=== PATIENT | male | born 1975 | race Caucasian/White ===

== ENCOUNTER 2017-01-29 05:11 | Day surgery (SDC) | payer OTHER ==
[2017-01-21 13:34] VITALS: BMI 35.9
--- NOTE | 2017-01-29 09:20 | HP ---
[facility] - Chief Complaint Chief Complaint: right bicep rupture - Past Medical History Allergies/Adverse Reactions: Allergies Allergy/AdvReac Type Severity Reaction Status Date / Time No Known Drug Allergies Allergy Verified 01/29/17 09:13 - Current Medications Current Medications: Home Medications Medication Instructions Recorded Multivitamin [Poly-Vitamin] 1 each PO DAILY 01/21/17 Zinc 200 mg PO DAILY 01/21/17 Hydrocodone/Acetaminophen [Burdett 1 each PO Q6H PRN #40 tablet MDD 4 01/29/17 5-325 Tablet] Satellite Physical Exam - Physical Examination Vital Signs: Vital Signs Period Temp Pulse Resp BP Sys/Kelley Pulse Ox Last 24 Hr 98.1 F 70 18 141/76 98 General Appearance: Well Nourished, Well Developed, Alert & Oriented x3 ENT: Clear Lung: Normal air movement Heart: Regular rate & rhythm Extremities: Other (right elbow, + deformity, + defect, nvi) Neurological: Intact, Alert, Oriented Satellite Impression/Plan - Impression/Plan Impression: right distal bicep tendon rupture Operative Procedure: right distal bicep repair Date to be Performed: 01/29/17
[2017-01-29] MEDS ORDERED: MIDAZOLAM HCL 2 MG/2 ML SINGLE DOSE VIAL ONE ×2 (13:12)
[2017-01-29] MEDS ORDERED: PROPOFOL 20 ML ONE ×4 (13:12→13:30)
[2017-01-29] MEDS ORDERED: ROCURONIUM BROMIDE 50 MG/5 ML VIAL ONE (13:12)
[2017-01-29] MEDS ORDERED: BUPIVACAINE HCL/PF 0.5% (5MG/ML) 10 ML VIAL ONE (13:15)
[2017-01-29] MEDS ORDERED: LIDOCAINE HCL 1%, 10 MG/ML (20ML VIAL) ONE (13:15)
[2017-01-29] MEDS ORDERED: ceFAZolin SODIUM 1 GM VIAL ONE (13:39)
[2017-01-29] MEDS ORDERED: ceFAZolin SODIUM 1 GM VIAL IVPB ONE (13:40)
[2017-01-29] MEDS ORDERED: DESFLURANE GAS 240 ML BOTTLE IH ONE (13:49)
[2017-01-29] MEDS ORDERED: GLYCOPYRROLATE 0.2 MG/1 ML VIAL ONE (13:56)
[2017-01-29] MEDS ORDERED: NEOSTIGMINE METHYLSULFATE 0.5 MG/ML - 10 ML MDV ONE (13:56)
[2017-01-29] MEDS ORDERED: LIDOCAINE HCL 1%, 10 MG/ML (20ML VIAL) IJ ONE (15:28)
[2017-01-29] MEDS ORDERED: BUPIVACAINE HCL/PF 0.5% (5MG/ML) 10 ML VIAL IJ ONE (15:28)
--- NOTE | 2017-01-29 15:41 | OP ---
Operative Note - Note: [facility]ative [facility]: [facility]/17 [facility] Pre-Operative Diagnosis: right distal biceps rupture Operation: right distal biceps repair Post-Operative Diagnosis: Same as Pre-op Surgeon: Doug Bernabe Chief Clerk Shelter: Godwin Miller Anesthesiologist/DISTRIBUTION MANAGER: Aishwarya Bettencourt Anesthesia: General, Local Estimated Blood Loss (mls): 10 (tourniquet) Operative Report Dictated: Yes
[2017-01-29] MEDS ORDERED: oxyCODONE HCL 5 MG TABLET PO PRN (15:54)
[2017-01-29] MEDS ORDERED: ONDANSETRON 4 MG/2 ML VIAL IVPUSH PRN (15:54)
[2017-01-29] MEDS ORDERED: LACTATED RINGERS SOLUTION 1,000 ML IV SCH (16:00)
[2017-01-29 18:13] VITALS: TEMP 98.6
[2017-01-29] MEDS ORDERED: oxyCODONE HCL 5 MG TABLET PO ONE (18:25)
[2017-01-29] MEDS ORDERED: oxyCODONE HCL 5 MG TABLET ONE (18:25)
[2017-01-29 19:11] VITALS: BP 132/75; PULSE 73
--- NOTE | 2017-01-30 09:22 | OP ---
DATE OF OPERATION: 01/29/2017 PREOPERATIVE DIAGNOSIS: Right distal biceps tendon rupture. POSTOPERATIVE DIAGNOSIS: Right distal biceps tendon rupture. PROCEDURE: Two-incision right distal biceps tendon repair. SURGEON: Daniel Aguirre MD CELERY PACKER: ADRY Messer ANESTHESIOLOGIST: Gaby Ponce MD ANESTHESIA: General endotracheal. DRAINS: None. COMPLICATIONS: None. SPECIMENS: None. BLOOD LOSS: None. FLUID REPLACEMENT: 1000 mL INDICATIONS: This patient is a 42-year-old male with a preoperative diagnosis of a right distal biceps tendon rupture. After understanding the potential risks, complications, alternatives, and benefits of surgery versus nonsurgical treatment, the patient elected to undergo this procedure. DESCRIPTION OF PROCEDURE: The patient was brought into the operating room. Peripheral IV placed. IV sedation given. Then, 2 g of IV Ancef were given. General endotracheal anesthesia was induced as the patient needed to have muscle relaxation. The right upper extremity was then prepped and draped in sterile fashion, elevated, exsanguinated with an Esmarch bandage. Tourniquet inflated to 250 mmHg. A transverse incision was marked out within the anterior elbow crease. Incision made with a number-15 scalpel blade. Subcutaneous hemostasis achieved with the bipolar cautery. Dissection done with Metzenbaum scissors down to the biceps tendon sheath which was incised. Inflammatory hematoma evacuated, and the distal biceps tendon stump was retrieved. I then used my finger and a Tristan elevator to remove inflammatory adhesions. I removed a small amount of acute inflammatory tissue around the distal stump of the biceps tendon. I then used 3 FiberWire sutures to use in an up-and-down, whipped, [id number]-ripmak fashion. There were 6 tails total. Next, I first passed my finger down through the distal biceps tendon sheath, then passed a curved Cori clamp, taking great care to avoid the ulnar periosteum and wrapped it around the radius, tented the skin, marked it out, made incision over the tip of the curved Cori clamp. Again, dissection was made with a number-15 scalpel blade. Subcutaneous hemostasis was achieved with the bipolar cautery. Dissection done down through the superficial fascia, through the muscular fascia, tracing the path of the curved hemostat the entire way. I was able to find the radial tuberosity. Burgess retractors were placed into the wound for better visualization. I used a rongeur to remove the soft tissue debris and muscle debris off of the radial tuberosity. Overall though, it was quite well visualized. Then, I passed the sutures via a Cori clamp through form anterior to posterior, through the biceps tendon sheath. It came out well. There was excellent length. Next, the anterior first incision was irrigated, washed out, 4-0 undyed Vicryl used to close the deep dermal layer, and final skin reapproximation was done with a running subcuticular 4-0 Biosyn stitch. It was washed and dried and covered with Steri-Strips. Our attention was turned back to the second more-posterior incision. We used an oval bur and burred out the radial tuberosity, rounding off the edges, making a crater with enough room for the distal stump of the biceps tendon. I then used a 2.7-mm drill bit, made 2 holes in the roof of the bony crater of the radial tuberosity. Then, using a nitinol wire, we passed the 3 tails through the distal, 3 tails through the proximal drill hole. I was able to pull the distal biceps tendon stump down into the crater quite well. It filled the entire crater. There was excellent length. I was able to rotate the arm as a unit. It moved quite well with not too much tension. I then pulled it in, held the arm in neutral, tied 2 tails to 2 tails, then tied 1 tail to 1 tail with insurance stitches. The excess tails were cut. The arm was tested, and indeed, the biceps tendon moved as a unit with the radial tuberosity. There was no gaping. Overall, it was quite good. The area was copiously irrigated and washed out. The deep fascia closed with 0 Vicryl suture. The second fascia closed with 0 Vicryl. The deep dermal layer closed with 2-0 Vicryl, and final skin reapproximation done with a running subcuticular 4-0 Biosyn stitch. The area was then washed and dried and covered with Steri-Strips, 4 x 4's, Webril, and a 6-inch posterior Ortho-Glass splint was applied, wrapped with 2 Gregorio bandages. Total tourniquet time was about 92 minutes. There were no complications during the case. The patient tolerated the procedure quite well and was brought to the ambulatory recovery room in stable condition. DANIEL AGUIRRE M.D. [id number]
== END 2017-01-29 19:15 | disposition home or self-care (01) ==
LOC: JASU-SURG 05:11
PROVIDERS: ATTEND Orthopaedic Surgery
PROC: 0LQ30ZZ Repair Right Upper Arm Tendon, Open Approach (ICD-10-PCS; principal; 2017-01-29 10:30)
DX: S46.211A Strain of muscle, fascia and tendon of other parts of biceps, right arm, initial encounter (principal); X58.XXXA Exposure to other specified factors, initial encounter; Y93.9 Activity, unspecified; Y92.9 Unspecified place or not applicable; Y99.9 Unspecified external cause status
CPT/HCPCS: 94760

== ENCOUNTER 2017-10-15 05:04 | Day surgery (SDC) | payer OTHER ==
[2017-10-10 10:26] VITALS: BMI 35.9
[2017-10-15 12:10] VITALS: BP 137/64; PULSE 60; TEMP 98.2
== END 2017-10-15 12:30 | disposition home or self-care (01) ==
LOC: JASU-SURG 05:04
PROVIDERS: ATTEND Orthopaedic Surgery
PROC: 0LM40ZZ Reattachment of Left Upper Arm Tendon, Open Approach (ICD-10-PCS; principal; 2017-10-15)
DX: S46.212A Strain of muscle, fascia and tendon of other parts of biceps, left arm, initial encounter (principal); X58.XXXA Exposure to other specified factors, initial encounter; Y93.9 Activity, unspecified; Y92.9 Unspecified place or not applicable; Y99.9 Unspecified external cause status
CPT/HCPCS: 94760

== ENCOUNTER 2023-05-02 05:05 | Day surgery (SDC) | payer OTHER ==
[2023-04-30 13:29] VITALS: BMI 36.6
[~2023-05-02 05:05] MED LIST: BUPIVACAINE HCL/PF 0.5% (5MG/ML) 10 ML VIAL IJ ONE; LIDOCAINE 1%/EPI 1:100000 (20 ML MULTI DOSE VIAL) INF ONE
[2023-05-02] MEDS ORDERED: BUPIVACAINE HCL/PF 0.5% (5MG/ML) 10 ML VIAL ONE (08:35)
[2023-05-02] MEDS ORDERED: LIDOCAINE 1%/EPI 1:100000 (20 ML MULTI DOSE VIAL) ONE (08:35)
[2023-05-02] MEDS ORDERED: PROPOFOL 20 ML ONE ×2 (09:07→09:20)
[2023-05-02] MEDS ORDERED: FENTANYL CITRATE/PF 50 MCG/ML VIAL ONE ×4 (09:07→10:58)
[2023-05-02] MEDS ORDERED: MIDAZOLAM HCL 2 MG/2 ML SINGLE DOSE VIAL ONE (09:08)
[2023-05-02] MEDS ORDERED: LIDOCAINE 1%/EPI 1:100000 (20 ML MULTI DOSE VIAL) INF ONE (09:49)
[2023-05-02] MEDS ORDERED: BUPIVACAINE HCL/PF 0.5% (5MG/ML) 10 ML VIAL IJ ONE (09:49)
[2023-05-02] MEDS ORDERED: oxyCODONE HCL 5 MG TABLET PO PRN (10:25)
[2023-05-02] MEDS ORDERED: LACTATED RINGERS SOLUTION 1,000 ML IV SCH (10:30)
[2023-05-02] MEDS ORDERED: KETOROLAC TROMETHAMINE 30 MG/1 ML VIAL ONE (11:28)
[2023-05-02 12:17] VITALS: RESP 18
[2023-05-02 12:56] VITALS: BP 110/72; PULSE 61; TEMP 97.4
== END 2023-05-02 12:55 | disposition home or self-care (01) ==
LOC: JASU-SURG 05:05
PROVIDERS: ATTEND Orthopaedic Surgery
PROC: 0SCC4ZZ Extirpation of Matter from Right Knee Joint, Percutaneous Endoscopic Approach (ICD-10-PCS; principal; 2023-05-02 10:00)
DX: M23.41 Loose body in knee, right knee (principal)
CPT/HCPCS: 88304-TC; 88311-TC; 94760